=== PATIENT | male | born 1960 | race Caucasian/White ===

== ENCOUNTER → 2017-01-31 | Outpatient (REF) ==
[~2017-01-31] MED LIST: ALEVE 220MG220 MG PO; ASPIRIN E.C. 8181 MG PO; FISH OIL 1000MG1 CAP PO; IMDUR 30MG30 MG/TAB PO; LIDODERM 5% PATC1 EA TP; LOPRESSOR 225 MG/TAB PO; NEURONTIN100 MG/CAP PO; NITROSTAT0.4 MG/TAB SL; PLAVIX 75MG TAB75 MG PO; ULTRAM 50MG TAB50 MG PO; ZETIA 10MG TAB10 MG PO; [UNRECOGNIZED DRUG - REMARK]
== END ==
LOC: ZLAB.WCH 14:43
DX: Z01.89 Encounter for other specified special examinations (principal)

== ENCOUNTER → 2017-03-21 | Outpatient (CLI) | payer OTHER, BC | LOC: COL.RAD 15:34 | DX: M17.11 Unilateral primary osteoarthritis, right knee (principal); S89.91XA Unspecified injury of right lower leg, initial encounter; M21.061 Valgus deformity, not elsewhere classified, right knee ==

== ENCOUNTER → 2017-04-22 | Outpatient (REF) ==
[2017-04-22 19:05] LABS: THYROID STIMULATING HORMONE 2.43 uIU/mL (0.465-4.680)
[2017-04-22 20:04] LABS: PSA-TOTAL 0.33 ng/mL (0-4)
== END ==
LOC: ZLAB.WCH 18:18
PROVIDERS: Nurse Practitioner Family
DX: Z01.89 Encounter for other specified special examinations (principal)
CPT/HCPCS: G0103

== ENCOUNTER → 2018-03-30 | Outpatient (REF) | LOC: ZLAB.WCH 16:43 | DX: Z01.89 Encounter for other specified special examinations (principal) ==